=== PATIENT | female | born 1960 | race African-American/Black ===

== ENCOUNTER 2017-06-19 06:04 | Day surgery (SDC) | payer OTHER ==
[2017-06-13 13:26] VITALS: BMI 36.9
--- NOTE | 2017-06-19 10:42 | HP ---
Past Medical History - Primary Care Physician PCP:: Jack Morris - Admission Chief Complaint: post menopausal, vaginal bleeding, submucos myoma History of Present Illness: 56 year menopausal with hx of fibroids and post menopausal vaginal bleeding . sono showed sumucos myoma for hysteroscopy D&C , myomectomy History Source: Patient Limitations to Obtaining History: No Limitations - Past Medical History Cardiovascular: Yes: HTN, Hyperlipdemia - Past Surgical History Hx Myomectomy: No Hx Transabdominal Cerclage: No - Smoking History Smoking history: Never smoked - Alcohol/Substance Use Hx Alcohol Use: Yes (rarely, socially) - Social History History of Recent Travel: No Home Medications - Allergies Allergies/Adverse Reactions: Allergies Allergy/AdvReac Type Severity Reaction Status Date / Time Sulfa (Sulfonamide Allergy Severe Hives Verified 06/19/17 08:57 Antibiotics) - Home Medications Home Medications: Ambulatory Orders Amlodipine Besylate [Norvasc -] 5 mg PO DAILY 06/13/17 Atorvastatin Ca [Lipitor] 20 mg PO HS 06/13/17 Empagliflozin [Jardiance] 25 mg PO HS 06/13/17 Folic Acid 0.4 mg PO DAILY 06/13/17 Insulin (Levemir) [Levemir Flexpen -] 20 units SQ HS 06/13/17 Losartan/Hydrochlorothiazide [Losartan-Hctz 50-12.5 mg Tab] 1 each PO DAILY Metformin HCl [Glucophage] 1,000 mg PO HS 06/13/17 Review of Systems - Review of Systems Constitutional: reports: No Symptoms Eyes: reports: No Symptoms HENT: reports: No Symptoms Neck: reports: No Symptoms Cardiovascular: reports: No Symptoms Respiratory: reports: No Symptoms Gastrointestinal: reports: No Symptoms Genitourinary: reports: Vaginal Bleeding Breasts: reports: No Symptoms Reported Musculoskeletal: reports: No Symptoms Integumentary: reports: No Symptoms Neurological: reports: No Symptoms Endocrine: reports: No Symptoms Hematology/Lymphatic: reports: No Symptoms Psychiatric: reports: No Symptoms Physical Exam-[employer] Vital Signs: Vital Signs Temperature 98.3 F 06/19/17 08:46 Pulse Rate 76 06/19/17 08:46 Respiratory Rate 16 06/19/17 08:46 Blood Pressure 141/92 06/19/17 08:46 O2 Sat by Pulse Oximetry (%) 100 06/19/17 08:46 Constitutional: Yes: Obese Eyes: Yes: WNL HENT: Yes: WNL Neck: Yes: WNL Cardiovascular: Yes: WNL Respiratory: Yes: WNL Gastrointestinal: Yes: WNL Renal/: Yes: WNL External Genitalia: Yes: Normal Vaginal Exam: Yes: Normal Cervix: Yes: Normal Uterus: Yes: Enlarged, Lumpy Adnexa: Not Palpable: Left, Right Edema: No Problem List - Problem (1) Postmenopausal bleeding Code(s): N95.0 - POSTMENOPAUSAL BLEEDING (2) Submucous leiomyoma of uterus Code(s): D25.0 - SUBMUCOUS LEIOMYOMA OF UTERUS Assessment/Plan hysteroscopy D&C resection of submucos myoma, rba discussed
[2017-06-19] MEDS ORDERED: MIDAZOLAM HCL 2 MG/2 ML SINGLE DOSE VIAL ONE (10:51)
[2017-06-19] MEDS ORDERED: PROPOFOL 20 ML ONE (10:52)
[2017-06-19] MEDS ORDERED: PROMETHAZINE HCL 25 MG/1 ML VIAL IVPUSH PRN (11:22)
[2017-06-19] MEDS ORDERED: ONDANSETRON 4 MG/2 ML VIAL IVPUSH PRN ×2 (11:22→12:00)
[2017-06-19] MEDS ORDERED: LACTATED RINGERS SOLUTION 1,000 ML IV SCH (11:30)
[2017-06-19] MEDS ORDERED: IBUPROFEN 800 MG/8 ML IJ IVPB PRN (12:00)
[2017-06-19] MEDS ORDERED: ELECTROLYTE-148 SOLN 1,000 ML IV SCH (12:00)
[2017-06-19] MEDS ORDERED: IBUPROFEN 600 MG TABLET (FP) PO PRN (12:00)
[2017-06-19] MEDS ORDERED: oxyCODONE HCL 5 MG TABLET PO PRN (12:00)
[2017-06-19 13:47] VITALS: TEMP 97.9
[2017-06-19 14:55] LABS: MCH 24.6 pg (25.7-33.7); MCHC 32.1 g/dl (32.0-36.0); MEAN CELL VOLUME 76.6 fl (80-96); MEAN PLT VOLUME 8.9 fl (7.5-11.1); PLATELET COUNT 186 K/MM3 (134-434); RDW 14.8 % (11.6-15.6)
[2017-06-19 15:11] LABS: ALBUMIN 3.1 g/dl (3.4-5.0); ALK PHOS 65 U/L (45-117); ANION GAP 9 (8-16); BILIRUBIN,TOTAL 0.2 mg/dL (0.2-1.0); CALCIUM 9.1 mg/dL (8.5-10.1); CO2 27 mmol/L (21-32); CREATININE 0.8 mg/dL (0.55-1.02); GLUCOSE,RANDOM 159 mg/dL (74-106); SGOT/AST 10 U/L (15-37); SGPT/ALT 14 U/L (12-78); TOT PROT 7.3 g/dl (6.4-8.2)
[2017-06-19 16:34] VITALS: BP 151/73; PULSE 82
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
--- NOTE | 2017-07-03 15:41 | OP ---
DATE OF OPERATION: 06/19/2017 PREOPERATIVE DIAGNOSES: Postmenopausal bleeding, submucous leiomyoma of the uterus. POSTOPERATIVE DIAGNOSES: Postmenopausal bleeding, submucous leiomyoma of the uterus. PROCEDURE: Hysteroscopy, dilatation and curettage, and resection of the submucous myoma with TRUCLEAR. SURGEON: Jack Morris MD ANESTHESIA: General. ESTIMATED BLOOD LOSS: About 150 mL. DESCRIPTION OF OPERATION: Patient was taken to the operating room. Under adequate general anesthesia in dorsal lithotomy position, abdomen and perineum and vagina were prepped and draped. Examination under anesthesia revealed external genitalia to be normal. Vagina was normal. Cervix was clean; no lesion. Uterus was slightly prominent, anteverted. No adnexal masses were palpable. Then, with the weighted speculum in the vagina, anterior lip of the cervix was grasped with a single-tooth tenaculum. Cervix was slightly dilated, and then, with the TRUCLEAR hysteroscope, resectoscope was introduced into the uterine cavity. Visualization of endocervical canal appeared to be normal. There were two submucous myomas, one at the posterior wall and one anterior wall, each about 2 cm, were seen. The rest of the endometrium appeared to be atrophic, and there was also a small polyp at the fundal area of the uterus noted. Both cornual regions were visualized. Both tubal ostia were visualized. Then, with the TRUCLEAR resectoscope, the resectoscope INCISOR device was introduced, and with the oscillating mode was put on with a speed of 800 rpm. Both fibroids were resected, and product was suctioned. Then, also, the polyp was removed. Fluid deficit was approximately 800 mL. The procedure was terminated after complete resection of both myomas. The patient tolerated the procedure well, left the OR in good condition. Helen [id number]
== END 2017-06-19 16:30 | disposition home or self-care (01) ==
LOC: JASU-SURG 06:04
PROVIDERS: ATTEND Obstetrics & Gynecology
PROC: 0UB98ZZ Excision of Uterus, Via Natural or Artificial Opening Endoscopic (ICD-10-PCS; principal; 2017-06-19 10:00)
PROC: 0UDB8ZX Extraction of Endometrium, Via Natural or Artificial Opening Endoscopic, Diagnostic (ICD-10-PCS; 2017-06-19 10:00)
DX: D25.0 Submucous leiomyoma of uterus (principal); N95.0 Postmenopausal bleeding
CPT/HCPCS: 36415; 80053; 85027; 88305-TC; 94760

== ENCOUNTER 2021-03-08 04:20 | Day surgery (SDC) | payer OTHER ==
[2021-03-04 11:46] VITALS: BMI 34.5
[2021-03-08] MEDS ORDERED: MIDAZOLAM HCL 2 MG/2 ML SINGLE DOSE VIAL ONE (09:17)
[2021-03-08] MEDS ORDERED: ONDANSETRON 4 MG/2 ML VIAL IVPUSH PRN ×2 (09:26→10:22)
[2021-03-08] MEDS ORDERED: ACETAMINOPHEN 500 MG TABLET (FP) PO PRN (09:26)
[2021-03-08] MEDS ORDERED: KETOROLAC TROMETHAMINE 30 MG/1 ML VIAL ONE (09:57)
[2021-03-08] MEDS ORDERED: oxyCODONE HCL 5 MG TABLET PO PRN (10:22)
[2021-03-08] MEDS ORDERED: IBUPROFEN 600 MG TABLET (FP) PO PRN (10:22)
[2021-03-08] MEDS ORDERED: IBUPROFEN 800 MG/8 ML IJ IVPB PRN (10:22)
[2021-03-08] MEDS ORDERED: ELECTROLYTE-148 SOLN 1,000 ML IV SCH (10:30)
[2021-03-08] MEDS ORDERED: ONDANSETRON 4 MG/2 ML VIAL ONE (13:08)
[2021-03-08 14:37] VITALS: BP 152/83; PULSE 80; TEMP 96
== END 2021-03-08 14:39 | disposition home or self-care (01) ==
LOC: JASU-SURG 04:20
PROVIDERS: ATTEND Obstetrics & Gynecology
PROC: 0UB98ZZ Excision of Uterus, Via Natural or Artificial Opening Endoscopic (ICD-10-PCS; principal; 2021-03-08 09:00)
PROC: 0UDB7ZX Extraction of Endometrium, Via Natural or Artificial Opening, Diagnostic (ICD-10-PCS; 2021-03-08 09:00)
PROC: 0UJD8ZZ Inspection of Uterus and Cervix, Via Natural or Artificial Opening Endoscopic (ICD-10-PCS; 2021-03-08 09:00)
DX: N95.0 Postmenopausal bleeding (principal); D25.0 Submucous leiomyoma of uterus; D64.9 Anemia, unspecified; E11.9 Type 2 diabetes mellitus without complications; Z79.84 Long term (current) use of oral hypoglycemic drugs; I10 Essential (primary) hypertension
CPT/HCPCS: 82962; 88305-TC; 94760